=== PATIENT | female | born 1960 | race African-American/Black ===

== ENCOUNTER 2021-05-03 09:22 | Day surgery (SDC) | payer BC ==
[2021-05-01 15:48] VITALS: BMI 25.7
[2021-05-03] MEDS ORDERED: oxyCODONE HCL 5 MG TABLET PO PRN (10:01)
[2021-05-03] MEDS ORDERED: ONDANSETRON 4 MG/2 ML VIAL IVPUSH PRN (10:01)
[2021-05-03] MEDS ORDERED: ACETAMINOPHEN 325 MG TABLET (FP) PO PRN (10:01)
[2021-05-03] MEDS ORDERED: PROMETHAZINE HCL 25 MG/1 ML VIAL IVPB PRN (10:01)
[2021-05-03] MEDS ORDERED: LACTATED RINGERS SOLUTION 1,000 ML IV SCH (10:15)
[2021-05-03] MEDS ORDERED: SODIUM CHLORIDE 0.9% P/F 10 ML VIAL IJ ONE (10:23)
[2021-05-03] MEDS ORDERED: LIDOCAINE HCL/PF 2% SDV 5ML VIAL ONE (10:23)
[2021-05-03] MEDS ORDERED: PROPOFOL 20 ML ONE (10:23)
[2021-05-03] MEDS ORDERED: DEXAMETHASONE SOD PHOSPHATE 4 MG/1 ML VIAL ONE (10:23)
[2021-05-03] MEDS ORDERED: KETOROLAC TROMETHAMINE 30 MG/1 ML VIAL ONE (10:23)
[2021-05-03] MEDS ORDERED: MIDAZOLAM HCL 2 MG/2 ML SINGLE DOSE VIAL ONE (10:23)
[2021-05-03] MEDS ORDERED: ALBUTEROL SO4 HFA INHALER IH PRN (11:33)
[2021-05-03 13:57] VITALS: TEMP 97.8
[2021-05-03 13:58] VITALS: BP 135/74; PULSE 68
== END 2021-05-03 13:10 | disposition home or self-care (01) ==
LOC: FASU 09:22
PROVIDERS: ATTEND Orthopaedic Surgery Orthopaedic Surgery of the Spine
PROC: 0LN70ZZ Release Right Hand Tendon, Open Approach (ICD-10-PCS; principal; 2021-05-03 11:14)
DX: M65.331 Trigger finger, right middle finger (principal)
CPT/HCPCS: 94760

== ENCOUNTER 2022-10-03 07:16 | Day surgery (SDC) | payer BC ==
[2022-09-30 13:39] VITALS: BMI 27.4
[2022-10-03] MEDS ORDERED: LIDOCAINE HCL 2% (20ML MULTI-DOSE VIAL) ONE (09:06)
[2022-10-03] MEDS ORDERED: MIDAZOLAM HCL 2 MG/2 ML SINGLE DOSE VIAL ONE (09:13)
[2022-10-03] MEDS ORDERED: FENTANYL CITRATE/PF 50 MCG/ML VIAL ONE ×2 (09:14→10:48)
[2022-10-03] MEDS ORDERED: PROPOFOL 40 ML ONE (09:19)
[2022-10-03] MEDS ORDERED: ceFAZolin SODIUM 1 GM VIAL ONE (09:29)
[2022-10-03] MEDS ORDERED: DEXAMETHASONE SOD PHOSPHATE 4 MG/1 ML VIAL ONE (09:39)
[2022-10-03] MEDS ORDERED: ONDANSETRON 4 MG/2 ML VIAL ONE (09:39)
[2022-10-03] MEDS ORDERED: ONDANSETRON 4 MG/2 ML VIAL IVPUSH PRN (10:19)
[2022-10-03] MEDS ORDERED: ACETAMINOPHEN 325 MG TABLET (FP) PO PRN (10:19)
[2022-10-03] MEDS ORDERED: oxyCODONE HCL 5 MG TABLET PO PRN (10:19)
[2022-10-03] MEDS ORDERED: LACTATED RINGERS SOLUTION 1,000 ML IV SCH (10:30)
[2022-10-03 11:41] VITALS: RESP 18; TEMP 97.8
[2022-10-03 11:55] VITALS: BP 131/74; PULSE 75
== END 2022-10-03 12:20 | disposition home or self-care (01) ==
LOC: FASU 07:16
PROVIDERS: ATTEND Orthopaedic Surgery Orthopaedic Surgery of the Spine
PROC: 0LN70ZZ Release Right Hand Tendon, Open Approach (ICD-10-PCS; 2022-10-03)
PROC: 0LN70ZZ Release Right Hand Tendon, Open Approach (ICD-10-PCS; principal; 2022-10-03 09:45)
DX: M65.321 Trigger finger, right index finger (principal); M65.341 Trigger finger, right ring finger
CPT/HCPCS: 94760

== ENCOUNTER 2023-10-14 05:59 | Day surgery (SDC) | payer BC ==
[2023-10-06 15:02] VITALS: BMI 26.5
[2023-10-14] MEDS ORDERED: MIDAZOLAM HCL 2 MG/2 ML SINGLE DOSE VIAL ONE (07:12)
[2023-10-14] MEDS ORDERED: PROPOFOL 20 ML ONE (07:12)
[2023-10-14] MEDS ORDERED: DEXAMETHASONE SOD PHOSPHATE 4 MG/1 ML VIAL ONE (08:10)
[2023-10-14] MEDS ORDERED: ceFAZolin SODIUM 1 GM VIAL ONE (08:10)
[2023-10-14] MEDS ORDERED: KETOROLAC TROMETHAMINE 30 MG/1 ML VIAL ONE (08:10)
[2023-10-14] MEDS ORDERED: ONDANSETRON 4 MG/2 ML VIAL ONE (08:10)
[2023-10-14] MEDS ORDERED: ePHEDrine SULFATE 50 MG/1 ML AMPULE ONE (08:32)
[2023-10-14] MEDS ORDERED: oxyCODONE HCL 5 MG TABLET PO PRN (09:01)
[2023-10-14] MEDS ORDERED: ACETAMINOPHEN 1000 MG/100 ML BAG IVPB ONE (09:01)
[2023-10-14] MEDS ORDERED: ONDANSETRON 4 MG/2 ML VIAL IVPUSH PRN (09:01)
[2023-10-14] MEDS ORDERED: LACTATED RINGERS SOLUTION 1,000 ML IV SCH (09:15)
[2023-10-14 09:37] VITALS: TEMP 97
[2023-10-14 10:15] VITALS: RESP 18
[2023-10-14 10:32] VITALS: BP 144/79; PULSE 69
== END 2023-10-14 10:20 | disposition home or self-care (01) ==
LOC: FASU 05:59
PROVIDERS: ATTEND Orthopaedic Surgery Orthopaedic Surgery of the Spine
PROC: 0LN80ZZ Release Left Hand Tendon, Open Approach (ICD-10-PCS; principal; 2023-10-14 08:33)
DX: M65.332 Trigger finger, left middle finger (principal)
CPT/HCPCS: 94760